=== PATIENT | male | born 1980 | race Caucasian/White ===

== ENCOUNTER 2016-07-19 19:08 | Emergency (ER) | payer OTHER ==
--- NOTE | 2016-07-19 22:02 | ED CLINICAL REPORT ---
Clinical Report - Physicians/Mid Levels [facility] [address] [place] [place] [address] 07/19/2016 19:09 Patient: ANDREY LEAL Time Seen: 193; initial patient contact. Arrived- By private vehicle. Historian- patient. HISTORY OF PRESENT ILLNESS Chief Complaint: SKIN RASH and BOIL. This started about 3 days ago and is still present and worsening. It was gradual in onset. It is described as itchy and painful. It has been generalized in location (multiple sores and swelling Left lower leg and ankle.). It has been located on the right leg and ankle (multiple sores and swelling). It has been located on the left buttock (abscess). A cause has been identified (IVDA). Similar symptoms previously: Several times. Recent medical care: Not recently seen/assessed. REVIEW OF SYSTEMS No fever, chills, nausea or vomiting. All systems otherwise negative, except as recorded above. PAST HISTORY Abscess Check. MRSA Infection. Cellulitis. Healing Abscess. Anal Fissure. Hemorrhoids. Abscess. ADDITIONAL SURGERIES: Shoulder Surgery. Tetanus immunization status is up-to-date. SOCIAL HISTORY Current every day smoker. Occasional alcohol use. History of IV drug use: methamphetamines, marijuana. ADDITIONAL NOTES The nursing notes have been reviewed with agreement regarding the chief complaint, PMH and patient medications and allergies. PHYSICAL EXAM Appearance: Alert. Oriented X3. No acute distress. ENT: Pharynx normal. CVS: Normal heart rate and rhythm. Heart sounds normal. Respiratory: No respiratory distress. Breath sounds normal. Abdomen: Nontender. No organomegaly. Skin: Medium area of cellulitis with tenderness, erythema and warmth to right leg, right ankle, right foot, left leg, left ankle and left foot. Single large abscess with fluctuance, pointing and cellulitis to left buttock. Extremities: Bilateral mild edema of the lower extremities involving both ankles. Neuro: Oriented X 3. LABS, X-RAYS, AND EKG Laboratory Tests: CBC w Diff: (ALYSHA: 07/19/2016 19:47) ( MsgRcvd 07/19/2016 20:37) Final results Test Result Flag Units (Reference) WHITE BLOOD COUNT 19.4 H K/uL (4.5-11.5) RED BLOOD COUNT 3.64 L M/uL (4.50-5.90) HEMOGLOBIN 11.0 L gm/dL (13.5-17.5) HEMATOCRIT 31.5 L % (41.0-53.0) MEAN CELL VOLUME 87 fL (80-100) MEAN CORPUSCULAR HGB 30 pg (26-34) MEAN CORPUSCULAR HGB CONC 35 g/dL (31-37) RED CELL DISTRIBUTION WIDTH 13.4 % (11.6-14.8) PLATELET COUNT 297 K/uL (150-400) POLY % 83 H % (50-75) BAND % 12 H % (0-8) LYMPH 2 L % (25-40) MONO 2 L % (3-14) EOSINOPHIL % 0 % (0-4) BASOPHIL % 0 % (0-2) METAMYELOCYTE % 1 % (0-1) MYELOCYTE 0 % (0-1) OTHER CELL TYPE 0 CMP: (ALYSHA: 07/19/2016 20:00) ( MsgRcvd 07/19/2016 20:36) Final results Test Result Flag Units (Reference) GLUCOSE 125 H mg/dL (70-110) BUN 12 mg/dL (7-18) CREATININE 0.9 mg/dL (0.6-1.3) Estimated GFR >60 mL/min Estimated GFR- >60 mL/min Note: Persistent reduction over 3 months in eGFR<60 mL/min/1.73 m2 defines CKD. Patients with eGFR values>=60 mL/min/1.73 m2 may also have CKD if evidence ofpersistent proteinuria. Additional information may be foundat www.kidney.org. SODIUM 135 L mmol/L (136-145) POTASSIUM 3.3 L mmol/L (3.5-5.1) CHLORIDE 99 mmol/L (98-107) CARBON DIOXIDE 27 mmol/L (21-32) CALCIUM 7.9 L mg/dL (8.5-10.1) TOTAL PROTEIN 6.7 g/dL (6.4-8.2) ALBUMIN 2.6 L g/dL (3.3-5.0) BILIRUBIN, TOTAL 1.2 H mg/dL (0.0-1.0) ALKALINE PHOSPHATASE 281 H U/L (46-116) AST (SGOT) 112 H U/L (15-37) ALT (SGPT) 72 U/L (12-78) Culture, Wound Deep: (ALYSHA: 07/19/2016 20:50) ( MsgRcvd 07/19/2016 21:30) IP SPECIMEN DESCRIPTION: ... Test Result Flag Units (Reference) GRAM STAIN, WOUND, DEEP GRAM POSITIVE COCCI: MODERATE WHITE BLOOD CELLS: FEW . PROGRESS AND PROCEDURES Incision & Drainage of Abscess: Time: 22:06. Per protocol, time-out completed immediately before the procedure. The abscess is located in the left buttock. The risks of the procedure, benefits and alternatives were explained. Consent was obtained. IV established. Placed on pulse oximeter. Parenteral Dilaudid administered. Skin cleansed with chlorhexidine. The abscess was incised with a #11 surgical blade. A large amount of pus was drained. Cavity was irrigated with saline and packed with gauze. Sample obtained for cultures and gram stain. A dressing was applied. Estimated blood loss: 10 mL. ( 100 mL pus drained). Course of Care: Spoke with pt about admission due to infection and high WBC. Initial HR was 101, so weak SIRS criteria. Pt has a place to stay with friends home and his mother is in the room and available to check on him. Dr. Bacon made aware of the case and is available if the patient needs to return tonight. Also discussed f/u tomorrow at [facility] and if not available can f/u here and I will be on shift. Will give Clindamycin 900 now, draw Lactate and PCT and blood cultures. Disposition: Discharged home in good and improved condition. Condition: good. CLINICAL IMPRESSION Single abscess to the left lower extremity with incision and drainage. Moderate leukocytosis with bandemia. INSTRUCTIONS Warnings: GENERAL WARNINGS: Return or contact your physician immediately if your condition worsens or changes unexpectedly, if not improving as expected, or if other problems arise. Specifically return if fever. If you can't get into [facility] tomorrow, you may come here. I am on shift tomorrow. Your Current Medications: CONTINUE TAKING THE FOLLOWING MEDICATIONS: None*. Prescription Medications: Hydrocodone/APAP 5mg / 325mg: take 1-2 orally every 6 hours as needed for pain. Dispense fifteen (15). No refill. Clindamycin 300 mg: take 1 capsule orally every 6 hours for 7 days. No refill. Follow-up: Screening today revealed the patient's blood pressure to be in the normal range. Follow-up with: [facility], , , [address], , [place], [address] Follow up tomorrow. Call for an appointment. (Electronically signed by Familia Gray Dr. 07/19/2016 22:09)
--- NOTE | 2016-07-19 22:02 | ED NURSING NOTES ---
Clinical Report - Nurses [facility] [address] [place] [address] 07/19/2016 19:09 [id number] Triage time 19:19. Acuity: LEVEL 3. Chief Complaint: LEFT LOWER EXTREMITY PAIN, SWELLING and REDNESS. 19:19 07/19/16. 19:19 07/19/16. No acute distress. SEPSIS SCREEN: Sepsis Screen. Negative (no infection suspected/documented). CARLOS ALBERTO COMA SCORE: Carlos Alberto Coma Scale: 15- eyes open spontaneously (4); best verbal response- oriented x 4 (5); best motor response- obeys commands (6). --19:22 Vipul Leo R.N. 19:19 07/19/16. BP: 117/71. HR: 101. RR: 18. O2 saturation: 99% on room air. Temp: 98.6 F (oral). Pain level now: 5/10. --19:22 Vipul Leo R.N. Weight: 69.8 kg stated. Height/Length: 72 inches Per Patient. BMI: 20.9. --19:21 Vipul Leo R.N. Medications None. --19:21 Vipul Leo R.N. Medication/allergy information source: the patient. --19:22 Vipul Leo R.N. Allergies No Known Drug Allergy. --19:21 Vipul Leo R.N. History Arrived by private vehicle. Historian: patient. Unaccompanied. 19:19 07/19/16. An injury may have occurred. He has had trouble walking. Treatment AGILE QA TESTER: None. PAST MEDICAL HX: Tetanus status: up-to-date. Immunizations: up-to-date. SOCIAL HX: Current every day smoker. Occasional alcohol use. History of heavy drug use: methamphetamines, marijuana. No infectious disease exposure. ABUSE ASSESSMENT: No report of abuse. FALL RISK ASSESSMENT: Fall risk assessment completed. No fall risk identified. NUTRITIONAL RISK ASSESSMENT: The nutritional risk assessment revealed no deficiencies. FUNCTIONAL ASSESSMENT: Functional assessment: no impairments noted. LEARNING NEEDS ASSESSMENT: The learning needs assessment revealed no barriers. SKIN INTEGRITY ASSESSMENT: Skin integrity risk assessment completed. No skin integrity risk identified. --19:22 Vipul Leo R.N. PROBLEMS: Abscess Check. MRSA Infection. Cellulitis. Healing Abscess. Anal Fissure. Hemorrhoids. Abscess. --19:21 Vipul Leo R.N. ADDITIONAL SURGERIES: Shoulder Surgery. --19:21 Vipul Leo R.N. Assessment 19:07/19/16. --19:22 Vipul Leo R.N. Interventions 19:07/19/16. 19:07/19/16. ID and allergy band on patient. --19: Vipul Leo R.N. PHYSICAL ASSESSMENT :07/19/16. GENERAL / NEURO / PSYCH: Oriented X 4. Alert. Appears in no acute distress. EXTREMITIES: Right foot: tenderness, swelling and erythema. Left foot: tenderness, swelling and erythema. SKIN: Skin is warm and dry. --19:22 Vipul Leo R.N. late entry - 20:07/19/16. SKIN: ( large abcess on left hip, hot, red, painful). --20:56 Camilla Rose R.N. NURSING PROGRESS NOTES :07/19/16. The plan of care for this patient has been created. Neuro-vascular extremity check. Patient gowned. Reassurance given. Call light placed in reach. Side rails up x 2. Bed placed in lowest position. Brakes of bed on. Brakes of chair on. --19: Vipul Leo R.N. :07/19/16. Patient ready for evaluation- chart flagged and notification provided. --: Vipul Leo R.N. 07/19/16. Care transferred and report given. --: Vipul Leo R.N. 20:07/19/2016 Site #1 started via IV in the right forearm with an 20g angiocath, with aseptic technique and good blood return; one attempt. Blood drawn: rainbow set and pediatric tubes. Labeled in the presence of the patient and sent to the lab. Saline lock flushed with 10 mL saline. --20:06 Camilla Rose R.N. 20:02 07/19/2016 Started bag #1 1000 mL IV Fluids IV NS (Saline); at 1000 mL/hr over 60 minute(s) via site #1. Allergies verified and confirmed 5 rights. IV patency established. IV site checked: no pain, redness, or swelling. IV flushed thoroughly pre- and post-medication administration. --20:06 Camilla Rose R.N. 20:03 07/19/2016 Dilaudid (HYDROmorphone HCl PF) IVP 1 mg given over 1 minute(s) via site #1. Allergies verified, confirmed 5 rights and sedative warning given to the patient. IV patency established. IV site checked: no pain, redness, or swelling. IV flushed thoroughly pre- and post-medication administration. IVP given by RN. --20:06 Camilla Rose R.N. 20:49 07/19/2016 Dilaudid (HYDROmorphone HCl PF) IVP 1 mg given over 1 minute(s) via site #1. Allergies verified, confirmed 5 rights and sedative warning given to the patient. IV patency established. IV site checked: no pain, redness, or swelling. IV flushed thoroughly pre- and post-medication administration. IVP given by RN. --20:51 Camilla Rose R.N. 21:15 07/19/16. BP: 90/57. HR: 88. RR: 18. O2 saturation: 100%. Pain level now 5/10. --21:15 Camilla Rose R.N. 21:00 07/19/2016 IV Fluids IV NS Discontinued: bag #1 infused. Total amount infused: 1000 mL. IV patency established. IV site checked: no pain, redness, or swelling. IV flushed thoroughly. --21:52 Camilla Rose R.N. 21:01 07/19/16. I & D: Incision and Drainage of abscess performed by ED physician. Assisted by one tech. Preparation: Incision and Drainage tray set up with 2% lidocaine. Procedure: skin cleansed with Betadine; a large amount of pus was drained. Cavity was packed with gauze. Sample obtained for cultures and gram stain. A dressing was applied. Post-procedure: he was stable. Total time of assist / procedure: 30 minutes. --21:01 Camilla Rose R.N. 21:15 07/19/16. Reassessment after (procedure). Overall patient status is the same- he states feels the same. --21:15 Camilla Rose R.N. 21:50 07/19/2016 Started 900 mg of Clindamycin IVPB in bag #1 50 mL; at 100 mL/hr over 30 minute(s) via site #1 via IV pump. Allergies verified and confirmed 5 rights. IV patency established. IV site checked: no pain, redness, or swelling. IV flushed thoroughly pre- and post-medication administration. --21:52 Camilla Rose R.N. DISPOSITION / DISCHARGE 22:20 07/19/2016 Clindamycin IVPB Discontinued: completed. Total amount infused: 50 mL. IV patency established. IV site checked: no pain, redness, or swelling. IV flushed thoroughly. --22:27 Camilla Rose R.N. 22:23 07/19/2016 Site #1 removed upon discharge. Catheter intact. Pressure dressing and bandaid applied. --22:28 Camilla Rose R.N. 22:27 07/19/16. Departure time: :Jul 19 2016. Condition at departure: improved and stable. The goals identified in the patient's plan of care were met. No learning barriers present. Reviewed medication(s) side effects, precautions, dosing and course information. Prescription(s) given to the patient. Patient verbalized understanding. Written instructions provided in Salvadorean. The patient was discharged home and accompanied by family. He left the Emergency Department ambulatory and via private vehicle. Family member driving. --22:29 Camilla Rose R.N. 22:27 07/19/16. BP: 103/68. HR: 91. RR: 18. O2 saturation: 100%. Temp: 98.3 F. Pain level now 09/06. --22:29 Camilla Rose R.N. Locked/Released at 07/19/2016 22:30 by Camilla Rose R.N.
--- NOTE | 2016-07-19 22:02 | ED ORDER SUMMARY ---
..... Patient: ANDREY LEAL OrderSheet [facility] VisitID: [id number] [place] [address] 35y, M Registration Date/Time: 07/19/2016 ORDER SHEET Weight: 69.8 kg (stated) Allergies: No Known Drug Allergy GENERAL ORDERS: Culture, Wound Deep (Buttock) (...) Urgent (19:47 07/19/2016 Whitley Victoria) (Ack 19:54 SRedmond) (20:49 EInderbitzen R.N.) CBC w Diff Urgent (19:47 07/19/2016 Whitley Victoria) (Ack 19:54 SRedmond) (20:05 EInderbitzen R.N.) CMP Urgent (19:47 07/19/2016 Whitley Victoria) (Ack 19:54 SRedmond) (20:05 EInderbitzen R.N.) Blood Culture (No) (N/A) Urgent (21:16 07/19/2016 Whitley Victoria) (Ack 21:25 SRedmond) (21:51 EInderbitzen R.N.) Lactic Acid for Sepsis Protocol Urgent (21:16 07/19/2016 Whitley Victoria) (Ack 21:25 SRedmond) (21:51 EInderbitzen R.N.) PCT (Procalcitonin) Urgent (21:16 07/19/2016 Whitley Victoria) (Ack 21:25 SRedmond) (21:51 EInderbitzen R.N.) MEDICATION ORDERS: IV FLUIDS: IV NS : initial bolus none -, then 1000 mL/hr for X1 (NOW) (19:46 07/19/2016 Whitley Victoria) (20:06 EInderbitzen R.N.) Dilaudid IV 1 mg (HIGH ALERT MEDICATION, NOW) (19:47 07/19/2016 Whitley Victoria) (20:06 EInderbitzen R.N.) Dilaudid IV 1 mg (HIGH ALERT MEDICATION, NOW) (20:50 07/19/2016 EInderbitzen R.N. verbal order read back to Whitley Victoria) (20:51 Steph R.NPancho) Clindamycin IV 900 mg/50mL (NOW) (21:16 07/19/2016 Whitley Victoria) (21:52 Steph Naqvi.Luis Enrique) ORDER SHEET NOTES: [Electronically signed by Familia Gray Dr. (22:09 07/19/2016)] [Electronically signed by Camilla Rose R.N. (22:30 07/19/2016)] [Electronically locked/signed by Camilla Rose R.N. (22:30 07/19/2016)]
--- NOTE | 2016-07-19 22:02 | ED ORDER SUMMARY ---
..... Patient: ANDREY LEAL OrderSheet [facility] VisitID: [id number] [place] [address] 35y, M Registration Date/Time: 07/19/2016 ORDER SHEET Weight: 69.8 kg (stated) Allergies: No Known Drug Allergy GENERAL ORDERS: Culture, Wound Deep (Buttock) (...) Urgent (19:47 07/19/2016 Whitley Victoria) (Ack 19:54 SRedmond) (20:49 EInderbitzen R.N.) CBC w Diff Urgent (19:47 07/19/2016 Whitley Victoria) (Ack 19:54 SRedmond) (20:05 EInderbitzen R.N.) CMP Urgent (19:47 07/19/2016 Whitley Victoria) (Ack 19:54 SRedmond) (20:05 EInderbitzen R.N.) Blood Culture (No) (N/A) Urgent (21:16 07/19/2016 Whitley Victoria) (Ack 21:25 SRedmond) (21:51 EInderbitzen R.N.) Lactic Acid for Sepsis Protocol Urgent (21:16 07/19/2016 Whitley Victoria) (Ack 21:25 SRedmond) (21:51 EInderbitzen R.N.) PCT (Procalcitonin) Urgent (21:16 07/19/2016 Whitley Victoria) (Ack 21:25 SRedmond) (21:51 EInderbitzen R.N.) MEDICATION ORDERS: IV FLUIDS: IV NS : initial bolus none -, then 1000 mL/hr for X1 (NOW) (19:46 07/19/2016 Whitley Victoria) (20:06 EInderbitzen R.N.) Dilaudid IV 1 mg (HIGH ALERT MEDICATION, NOW) (19:47 07/19/2016 Whitley Victoria) (20:06 EInderbitzen R.N.) Dilaudid IV 1 mg (HIGH ALERT MEDICATION, NOW) (20:50 07/19/2016 EInderbitzen R.N. verbal order read back to Whitley Victoria) (20:51 Steph R.NPancho) Clindamycin IV 900 mg/50mL (NOW) (21:16 07/19/2016 Whitley Victoria) (21:52 Steph Naqvi.Luis Enrique) ORDER SHEET NOTES: [Electronically signed by Familia Gray Dr. (22:09 07/19/2016)] [Electronically signed by Camilla Rose R.N. (22:30 07/19/2016)] [Electronically locked/signed by Camilla Rose R.N. (22:30 07/19/2016)]
--- NOTE | 2016-07-19 22:02 | ED CLINICAL REPORT ---
Clinical Report - Physicians/Mid Levels [facility] [address] [place] [place] [address] 07/19/2016 19:09 Patient: ANDREY LEAL Time Seen: 193; initial patient contact. Arrived- By private vehicle. Historian- patient. HISTORY OF PRESENT ILLNESS Chief Complaint: SKIN RASH and BOIL. This started about 3 days ago and is still present and worsening. It was gradual in onset. It is described as itchy and painful. It has been generalized in location (multiple sores and swelling Left lower leg and ankle.). It has been located on the right leg and ankle (multiple sores and swelling). It has been located on the left buttock (abscess). A cause has been identified (IVDA). Similar symptoms previously: Several times. Recent medical care: Not recently seen/assessed. REVIEW OF SYSTEMS No fever, chills, nausea or vomiting. All systems otherwise negative, except as recorded above. PAST HISTORY Abscess Check. MRSA Infection. Cellulitis. Healing Abscess. Anal Fissure. Hemorrhoids. Abscess. ADDITIONAL SURGERIES: Shoulder Surgery. Tetanus immunization status is up-to-date. SOCIAL HISTORY Current every day smoker. Occasional alcohol use. History of IV drug use: methamphetamines, marijuana. ADDITIONAL NOTES The nursing notes have been reviewed with agreement regarding the chief complaint, PMH and patient medications and allergies. PHYSICAL EXAM Appearance: Alert. Oriented X3. No acute distress. ENT: Pharynx normal. CVS: Normal heart rate and rhythm. Heart sounds normal. Respiratory: No respiratory distress. Breath sounds normal. Abdomen: Nontender. No organomegaly. Skin: Medium area of cellulitis with tenderness, erythema and warmth to right leg, right ankle, right foot, left leg, left ankle and left foot. Single large abscess with fluctuance, pointing and cellulitis to left buttock. Extremities: Bilateral mild edema of the lower extremities involving both ankles. Neuro: Oriented X 3. LABS, X-RAYS, AND EKG Laboratory Tests: CBC w Diff: (ALYSHA: 07/19/2016 19:47) ( MsgRcvd 07/19/2016 20:37) Final results Test Result Flag Units (Reference) WHITE BLOOD COUNT 19.4 H K/uL (4.5-11.5) RED BLOOD COUNT 3.64 L M/uL (4.50-5.90) HEMOGLOBIN 11.0 L gm/dL (13.5-17.5) HEMATOCRIT 31.5 L % (41.0-53.0) MEAN CELL VOLUME 87 fL (80-100) MEAN CORPUSCULAR HGB 30 pg (26-34) MEAN CORPUSCULAR HGB CONC 35 g/dL (31-37) RED CELL DISTRIBUTION WIDTH 13.4 % (11.6-14.8) PLATELET COUNT 297 K/uL (150-400) POLY % 83 H % (50-75) BAND % 12 H % (0-8) LYMPH 2 L % (25-40) MONO 2 L % (3-14) EOSINOPHIL % 0 % (0-4) BASOPHIL % 0 % (0-2) METAMYELOCYTE % 1 % (0-1) MYELOCYTE 0 % (0-1) OTHER CELL TYPE 0 CMP: (ALYSHA: 07/19/2016 20:00) ( MsgRcvd 07/19/2016 20:36) Final results Test Result Flag Units (Reference) GLUCOSE 125 H mg/dL (70-110) BUN 12 mg/dL (7-18) CREATININE 0.9 mg/dL (0.6-1.3) Estimated GFR >60 mL/min Estimated GFR- >60 mL/min Note: Persistent reduction over 3 months in eGFR<60 mL/min/1.73 m2 defines CKD. Patients with eGFR values>=60 mL/min/1.73 m2 may also have CKD if evidence ofpersistent proteinuria. Additional information may be foundat www.kidney.org. SODIUM 135 L mmol/L (136-145) POTASSIUM 3.3 L mmol/L (3.5-5.1) CHLORIDE 99 mmol/L (98-107) CARBON DIOXIDE 27 mmol/L (21-32) CALCIUM 7.9 L mg/dL (8.5-10.1) TOTAL PROTEIN 6.7 g/dL (6.4-8.2) ALBUMIN 2.6 L g/dL (3.3-5.0) BILIRUBIN, TOTAL 1.2 H mg/dL (0.0-1.0) ALKALINE PHOSPHATASE 281 H U/L (46-116) AST (SGOT) 112 H U/L (15-37) ALT (SGPT) 72 U/L (12-78) Culture, Wound Deep: (ALYSHA: 07/19/2016 20:50) ( MsgRcvd 07/19/2016 21:30) IP SPECIMEN DESCRIPTION: ... Test Result Flag Units (Reference) GRAM STAIN, WOUND, DEEP GRAM POSITIVE COCCI: MODERATE WHITE BLOOD CELLS: FEW . PROGRESS AND PROCEDURES Incision & Drainage of Abscess: Time: 22:06. Per protocol, time-out completed immediately before the procedure. The abscess is located in the left buttock. The risks of the procedure, benefits and alternatives were explained. Consent was obtained. IV established. Placed on pulse oximeter. Parenteral Dilaudid administered. Skin cleansed with chlorhexidine. The abscess was incised with a #11 surgical blade. A large amount of pus was drained. Cavity was irrigated with saline and packed with gauze. Sample obtained for cultures and gram stain. A dressing was applied. Estimated blood loss: 10 mL. ( 100 mL pus drained). Course of Care: Spoke with pt about admission due to infection and high WBC. Initial HR was 101, so weak SIRS criteria. Pt has a place to stay with friends home and his mother is in the room and available to check on him. Dr. Bacon made aware of the case and is available if the patient needs to return tonight. Also discussed f/u tomorrow at [facility] and if not available can f/u here and I will be on shift. Will give Clindamycin 900 now, draw Lactate and PCT and blood cultures. Disposition: Discharged home in good and improved condition. Condition: good. CLINICAL IMPRESSION Single abscess to the left lower extremity with incision and drainage. Moderate leukocytosis with bandemia. INSTRUCTIONS Warnings: GENERAL WARNINGS: Return or contact your physician immediately if your condition worsens or changes unexpectedly, if not improving as expected, or if other problems arise. Specifically return if fever. If you can't get into [facility] tomorrow, you may come here. I am on shift tomorrow. Your Current Medications: CONTINUE TAKING THE FOLLOWING MEDICATIONS: None*. Prescription Medications: Hydrocodone/APAP 5mg / 325mg: take 1-2 orally every 6 hours as needed for pain. Dispense fifteen (15). No refill. Clindamycin 300 mg: take 1 capsule orally every 6 hours for 7 days. No refill. Follow-up: Screening today revealed the patient's blood pressure to be in the normal range. Follow-up with: [facility], , , [address], , [place], [address] Follow up tomorrow. Call for an appointment. (Electronically signed by Familia Gray Dr. 07/19/2016 22:09)
--- NOTE | 2016-07-19 22:31 | ED MED RECONCILIATION SUMMARY ---
Patient: ANDREY LEAL Medication Reconciliation Report [facility] VisitID: [id number] [address] [place] [address] 35y, M Registration Date/Time: 07/19/2016 Weight: 69.8 kg Height/Length: 72 in. BMI: 20.9 ALLERGIES: No Known Drug Allergy The patient's Home Medications are listed below: NONE. The source(s) of the original Home Medication information: patient The following Medications were given to the patient in the Emergency Department: IV NS IV Fluids bolus 0, then 1000 mL/hr, administered: 07/19/2016 8:02:00 PM Dilaudid [IVP] IVP 1 mg, administered: 07/19/2016 8:03:00 PM Dilaudid [IVP] IVP 1 mg, administered: 07/19/2016 8:49:00 PM Clindamycin [IVPB] IVPB bolus 0, then 900 mg 100 mL/hr, administered: 07/19/2016 9:50:00 PM The following Medications were prescribed to the patient: Hydrocodone/APAP 5mg / 325mg: take 1-2 orally every 6 hours as needed for pain. Dispense fifteen (15). No refill. -- Familia Gray Dr. Clindamycin 300 mg: take 1 capsule orally every 6 hours for 7 days. No refill. -- Familia Gray Dr.
--- NOTE | 2016-07-19 22:31 | ED DISCHARGE INSTRUCTIONS ---
Patient: ANDREY LEAL General Instructions [facility] VisitID: [id number] [address] [place] [address] 35y, M Registration Date/Time: 07/19/2016 Single abscess to the left lower extremity with incision and drainage. Moderate leukocytosis with bandemia. INSTRUCTIONS Warnings: GENERAL WARNINGS: Return or contact your physician immediately if your condition worsens or changes unexpectedly, if not improving as expected, or if other problems arise. Specifically return if fever. If you can't get into [facility] tomorrow, you may come here. I am on shift tomorrow. Your Current Medications: CONTINUE TAKING THE FOLLOWING MEDICATIONS: None*. Prescription Medications: Hydrocodone/APAP 5mg / 325mg: take 1-2 orally every 6 hours as needed for pain. Dispense fifteen (15). No refill. Clindamycin 300 mg: take 1 capsule orally every 6 hours for 7 days. No refill. Follow-up: Screening today revealed the patient's blood pressure to be in the normal range. Follow-up with: [facility], , , [address], , [place], [id number] Follow up tomorrow. Call for an appointment. ADDITIONAL INFORMATION Abscess [Incision & Drainage] An abscess (sometimes called a boil) occurs when bacteria get trapped under the skin and begin to grow. Pus forms inside the abscess as the body responds to the bacteria. An abscess can occur with an insect bite, ingrown hair, blocked oil gland, pimple, cyst, or puncture wound. Treatment of your abscess has required an incision to drain the pus. If the abscess pocket was large, a gauze packing may have been inserted. This will need to be removed and possibly replaced on your next visit. Antibiotics are not required in the treatment of a simple abscess, unless the infection is spreading into the skin around the wound (known as cellulitis). Healing of the wound will take about one to two weeks depending on the size of the abscess. Healthy tissue will grow from the bottom and sides of the opening until it seals over. Home Care: The wound may drain for the first two days. Cover the wound with a clean dry dressing. If the dressing becomes soaked with blood or pus, change it. If a gauze packing was placed inside the abscess cavity, you may be advised to remove it yourself. You may do this in the shower. Once the packing is removed, you should wash the area in the shower or bath 3 to 4 times a day, until the skin opening has closed. If you were prescribed antibiotics, take them as directed until they are all gone. You may use acetaminophen (Tylenol) or ibuprofen (Motrin, Advil) to control pain, unless another pain medicine was prescribed. [ NOTE: If you have liver disease or ever had a stomach ulcer, talk with your doctor before using these medicines.] Follow Up with your doctor as advised by our staff. If a gauze packing was inserted in your wound, it should be removed in 1-2 days. Check your wound every day for the signs of worsening infection listed below. Get Prompt Medical Attention if any of the following occur: Increasing redness or swelling Red streaks in the skin leading away from the wound Increasing local pain or swelling Continued pus draining from the wound two days after treatment Fever of 100.4F (38C) or higher, or as directed by your healthcare provider Hydrocodone Bitartrate, Acetaminophen Oral tablet What is this medicine? ACETAMINOPHEN; HYDROCODONE (a set a ROCÍO rigo fen; randy droe KOE done) is a pain reliever. It is used to treat mild to moderate pain. How should I use this medicine? Take this medicine by mouth. Swallow it with a full glass of water. Follow the directions on the prescription label. If the medicine upsets your stomach, take the medicine with food or milk. Do not take more than you are told to take. Talk to your credit collections analyst regarding the use of this medicine in children. This medicine is not approved for use in children. What side effects may I notice from receiving this medicine? Side effects that you should report to your doctor or health care management assistant as soon as possible: allergic reactions like skin rash, itching or hives, swelling of the face, lips, or tongue breathing problems confusion feeling faint or lightheaded, falls stomach pain yellowing of the eyes or skin Side effects that usually do not require medical attention (report to your doctor or health care management assistant if they continue or are bothersome): nausea, vomiting stomach upset What may interact with this medicine? alcohol antihistamines isoniazid medicines for depression, anxiety, or psychotic disturbances medicines for sleep muscle relaxants naltrexone narcotic medicines (opiates) for pain phenobarbital ritonavir tramadol What if I miss a dose? If you miss a dose, take it as soon as you can. If it is almost time for your next dose, take only that dose. Do not take double or extra doses. Where should I keep my medicine? Keep out of the reach of children. This medicine can be abused. Keep your medicine in a safe place to protect it from theft. Do not share this medicine with anyone. Selling or giving away this medicine is dangerous and against the law. Store at room temperature between 15 and 30 degrees C (59 and 86 degrees F). Protect from light. Keep container tightly closed. Throw away any unused medicine after the expiration date. Discard unused medicine and used packaging carefully. Pets and children can be harmed if they find used or lost packages. What should I tell my health care provider before I take this medicine? They need to know if you have any of these conditions: brain tumor Crohn's disease, inflammatory bowel disease, or ulcerative colitis drink more than 3 alcohol-containing drinks per day drug abuse or addiction head injury heart or circulation problems kidney disease or problems going to the bathroom liver disease lung disease, asthma, or breathing problems an unusual or allergic reaction to acetaminophen, hydrocodone, other opioid analgesics, other medicines, foods, dyes, or preservatives or trying to get breast-feeding What should I watch for while using this medicine? Tell your doctor or health care management assistant if your pain does not go away, if it gets worse, or if you have new or a different type of pain. You may develop tolerance to the medicine. Tolerance means that you will need a higher dose of the medicine for pain relief. Tolerance is normal and is expected if you take the medicine for a long time. Do not suddenly stop taking your medicine because you may develop a severe reaction. Your body becomes used to the medicine. This does NOT mean you are addicted. Addiction is a behavior related to getting and using a drug for a non-medical reason. If you have pain, you have a medical reason to take pain medicine. Your doctor will tell you how much medicine to take. If your doctor wants you to stop the medicine, the dose will be slowly lowered over time to avoid any side effects. You may get drowsy or dizzy when you first start taking the medicine or change doses. Do not drive, use machinery, or do anything that may be dangerous until you know how the medicine affects you. Stand or sit up slowly. There are different types of narcotic medicines (opiates) for pain. If you take more than one type at the same time, you may have more side effects. Give your health care provider a list of all medicines you use. Your doctor will tell you how much medicine to take. Do not take more medicine than directed. Call emergency for help if you have problems breathing. The medicine will cause constipation. Try to have a bowel movement at least every 2 to 3 days. If you do not have a bowel movement for 3 days, call your doctor or health care management assistant. Too much acetaminophen can be very dangerous. Do not take Tylenol (acetaminophen) or medicines that contain acetaminophen with this medicine. Many non-prescription medicines contain acetaminophen. Always read the labels carefully. Clindamycin Hydrochloride Oral capsule What is this medicine? CLINDAMYCIN (KLIN da JOSE MARTIN sin) is a lincosamide antibiotic. It is used to treat certain kinds of bacterial infections. It will not work for colds, flu, or other viral infections. How should I use this medicine? Take this medicine by mouth with a full glass of water. Follow the directions on the prescription label. You can take this medicine with food or on an empty stomach. If the medicine upsets your stomach, take it with food. Take your medicine at regular intervals. Do not take your medicine more often than directed. Take all of your medicine as directed even if you think your are better. Do not skip doses or stop your medicine early. Talk to your credit collections analyst regarding the use of this medicine in children. Special care may be needed. What side effects may I notice from receiving this medicine? Side effects that you should report to your doctor or health care management assistant as soon as possible: allergic reactions like skin rash, itching or hives, swelling of the face, lips, or tongue dark urine pain on swallowing redness, blistering, peeling or loosening of the skin, including inside the mouth unusual bleeding or bruising unusually weak or tired yellowing of eyes or skin Side effects that usually do not require medical attention (report to your doctor or health care management assistant if they continue or are bothersome): diarrhea itching in the rectal or genital area joint pain nausea, vomiting stomach pain What may interact with this medicine? chloramphenicol erythromycin kaolin products What if I miss a dose? If you miss a dose, take it as soon as you can. If it is almost time for your next dose, take only that dose. Do not take double or extra doses. Where should I keep my medicine? Keep out of the reach of children. Store at room temperature between 20 and 25 degrees C (68 and 77 degrees F). Throw away any unused medicine after the expiration date. What should I tell my health care provider before I take this medicine? They need to know if you have any of these conditions: kidney disease liver disease stomach problems like colitis an unusual or allergic reaction to clindamycin, lincomycin, or other medicines, foods, dyes like tartrazine or preservatives or trying to get breast-feeding What should I watch for while using this medicine? Tell your doctor or healthcare professional if your symptoms do not start to get better or if they get worse. Do not treat diarrhea with over the counter products. Contact your doctor if you have diarrhea that lasts more than 2 days or if it is severe and watery. You have been given the following additional information: Abscess, Incision And Drainage Hydrocodone Bitartrate, Acetaminophen Oral tablet Clindamycin Hydrochloride Oral capsule (Electronically signed by Familia Gray Dr. 07/19/2016 22:09)
--- NOTE | 2016-07-19 22:31 | ED MAR SUMMARY ---
..... Medication Administration Record [facility] [address] [place] [address] Patient: ANDREY LEAL Visit ID: [id number] 35y, M Weight: 69.8 kg Height/Length: 72 in BMI: 20.9 ALLERGIES: No Known Drug Allergy Start 20:02 07/19/2016 Camilla Rose R.N., Stop 21:00 07/19/2016 Camilla Rose R.N. Medication Administered: IV NS (SALINE), Dose: IV Fluids over 60 minute(s), Rate: 1000 mL/hr, Dispensed: 1000 mL bag, Site: #1 right forearm. Medication Ordered: IV NS : initial bolus none -, then 1000 mL/hr for X1 (NOW). Given 20:03 07/19/2016 Camilla Rose R.N. Medication Administered: DILAUDID [IVP] (HYDROMORPHONE HCL PF), Dose: 1 mg IVP over 1 minute(s), Site: #1 right forearm. Medication Ordered: Dilaudid IV 1 mg (HIGH ALERT MEDICATION, NOW). Given 20:49 07/19/2016 Camilla Rose R.N. Medication Administered: DILAUDID [IVP] (HYDROMORPHONE HCL PF), Dose: 1 mg IVP over 1 minute(s), Site: #1 right forearm. Medication Ordered: Dilaudid IV 1 mg (HIGH ALERT MEDICATION, NOW). Start 21:50 07/19/2016 Camilla Rose R.N., Stop 22:20 07/19/2016 Camilla Rose R.N. Medication Administered: CLINDAMYCIN [IVPB], Dose: 900 mg IVPB over 30 minute(s), Rate: 100 mL/hr, Dispensed: 50 mL bag, Site: #1 right forearm. Medication Ordered: Clindamycin IV 900 mg/50mL (NOW).
--- NOTE | 2016-07-19 22:31 | ED MAR SUMMARY ---
..... Medication Administration Record [facility] [address] [place] [address] Patient: ANDREY LEAL Visit ID: [id number] 35y, M Weight: 69.8 kg Height/Length: 72 in BMI: 20.9 ALLERGIES: No Known Drug Allergy Start 20:02 07/19/2016 Camilla Rose R.N., Stop 21:00 07/19/2016 Camilla Rose R.N. Medication Administered: IV NS (SALINE), Dose: IV Fluids over 60 minute(s), Rate: 1000 mL/hr, Dispensed: 1000 mL bag, Site: #1 right forearm. Medication Ordered: IV NS : initial bolus none -, then 1000 mL/hr for X1 (NOW). Given 20:03 07/19/2016 Camilla Rose R.N. Medication Administered: DILAUDID [IVP] (HYDROMORPHONE HCL PF), Dose: 1 mg IVP over 1 minute(s), Site: #1 right forearm. Medication Ordered: Dilaudid IV 1 mg (HIGH ALERT MEDICATION, NOW). Given 20:49 07/19/2016 Camilla Rose R.N. Medication Administered: DILAUDID [IVP] (HYDROMORPHONE HCL PF), Dose: 1 mg IVP over 1 minute(s), Site: #1 right forearm. Medication Ordered: Dilaudid IV 1 mg (HIGH ALERT MEDICATION, NOW). Start 21:50 07/19/2016 Camilla Rose R.N., Stop 22:20 07/19/2016 Camilla Rose R.N. Medication Administered: CLINDAMYCIN [IVPB], Dose: 900 mg IVPB over 30 minute(s), Rate: 100 mL/hr, Dispensed: 50 mL bag, Site: #1 right forearm. Medication Ordered: Clindamycin IV 900 mg/50mL (NOW).
--- NOTE | 2016-07-19 22:31 | ED MED RECONCILIATION SUMMARY ---
Patient: ANDREY LEAL Medication Reconciliation Report [facility] VisitID: [id number] [address] [place] [address] 35y, M Registration Date/Time: 07/19/2016 Weight: 69.8 kg Height/Length: 72 in. BMI: 20.9 ALLERGIES: No Known Drug Allergy The patient's Home Medications are listed below: NONE. The source(s) of the original Home Medication information: patient The following Medications were given to the patient in the Emergency Department: IV NS IV Fluids bolus 0, then 1000 mL/hr, administered: 07/19/2016 8:02:00 PM Dilaudid [IVP] IVP 1 mg, administered: 07/19/2016 8:03:00 PM Dilaudid [IVP] IVP 1 mg, administered: 07/19/2016 8:49:00 PM Clindamycin [IVPB] IVPB bolus 0, then 900 mg 100 mL/hr, administered: 07/19/2016 9:50:00 PM The following Medications were prescribed to the patient: Hydrocodone/APAP 5mg / 325mg: take 1-2 orally every 6 hours as needed for pain. Dispense fifteen (15). No refill. -- Familia Gray Dr. Clindamycin 300 mg: take 1 capsule orally every 6 hours for 7 days. No refill. -- Familia Gray Dr.
--- NOTE | 2016-07-19 22:31 | ED DISCHARGE INSTRUCTIONS ---
Patient: ANDREY LEAL General Instructions [facility] VisitID: [id number] [address] [place] [address] 35y, M Registration Date/Time: 07/19/2016 Single abscess to the left lower extremity with incision and drainage. Moderate leukocytosis with bandemia. INSTRUCTIONS Warnings: GENERAL WARNINGS: Return or contact your physician immediately if your condition worsens or changes unexpectedly, if not improving as expected, or if other problems arise. Specifically return if fever. If you can't get into [facility] tomorrow, you may come here. I am on shift tomorrow. Your Current Medications: CONTINUE TAKING THE FOLLOWING MEDICATIONS: None*. Prescription Medications: Hydrocodone/APAP 5mg / 325mg: take 1-2 orally every 6 hours as needed for pain. Dispense fifteen (15). No refill. Clindamycin 300 mg: take 1 capsule orally every 6 hours for 7 days. No refill. Follow-up: Screening today revealed the patient's blood pressure to be in the normal range. Follow-up with: [facility] , , [address], , [place], [id number] Follow up tomorrow. Call for an appointment. ADDITIONAL INFORMATION Abscess [Incision & Drainage] An abscess (sometimes called a boil) occurs when bacteria get trapped under the skin and begin to grow. Pus forms inside the abscess as the body responds to the bacteria. An abscess can occur with an insect bite, ingrown hair, blocked oil gland, pimple, cyst, or puncture wound. Treatment of your abscess has required an incision to drain the pus. If the abscess pocket was large, a gauze packing may have been inserted. This will need to be removed and possibly replaced on your next visit. Antibiotics are not required in the treatment of a simple abscess, unless the infection is spreading into the skin around the wound (known as cellulitis). Healing of the wound will take about one to two weeks depending on the size of the abscess. Healthy tissue will grow from the bottom and sides of the opening until it seals over. Home Care: The wound may drain for the first two days. Cover the wound with a clean dry dressing. If the dressing becomes soaked with blood or pus, change it. If a gauze packing was placed inside the abscess cavity, you may be advised to remove it yourself. You may do this in the shower. Once the packing is removed, you should wash the area in the shower or bath 3 to 4 times a day, until the skin opening has closed. If you were prescribed antibiotics, take them as directed until they are all gone. You may use acetaminophen (Tylenol) or ibuprofen (Motrin, Advil) to control pain, unless another pain medicine was prescribed. [ NOTE: If you have liver disease or ever had a stomach ulcer, talk with your doctor before using these medicines.] Follow Up with your doctor as advised by our staff. If a gauze packing was inserted in your wound, it should be removed in 1-2 days. Check your wound every day for the signs of worsening infection listed below. Get Prompt Medical Attention if any of the following occur: Increasing redness or swelling Red streaks in the skin leading away from the wound Increasing local pain or swelling Continued pus draining from the wound two days after treatment Fever of 100.4F (38C) or higher, or as directed by your healthcare provider Hydrocodone Bitartrate, Acetaminophen Oral tablet What is this medicine? ACETAMINOPHEN; HYDROCODONE (a set a ROCÍO rigo fen; randy droe KOE done) is a pain reliever. It is used to treat mild to moderate pain. How should I use this medicine? Take this medicine by mouth. Swallow it with a full glass of water. Follow the directions on the prescription label. If the medicine upsets your stomach, take the medicine with food or milk. Do not take more than you are told to take. Talk to your anti air warfare operations officer regarding the use of this medicine in children. This medicine is not approved for use in children. What side effects may I notice from receiving this medicine? Side effects that you should report to your doctor or health healthcare management consultant as soon as possible: allergic reactions like skin rash, itching or hives, swelling of the face, lips, or tongue breathing problems confusion feeling faint or lightheaded, falls stomach pain yellowing of the eyes or skin Side effects that usually do not require medical attention (report to your doctor or health healthcare management consultant if they continue or are bothersome): nausea, vomiting stomach upset What may interact with this medicine? alcohol antihistamines isoniazid medicines for depression, anxiety, or psychotic disturbances medicines for sleep muscle relaxants naltrexone narcotic medicines (opiates) for pain phenobarbital ritonavir tramadol What if I miss a dose? If you miss a dose, take it as soon as you can. If it is almost time for your next dose, take only that dose. Do not take double or extra doses. Where should I keep my medicine? Keep out of the reach of children. This medicine can be abused. Keep your medicine in a safe place to protect it from theft. Do not share this medicine with anyone. Selling or giving away this medicine is dangerous and against the law. Store at room temperature between 15 and 30 degrees C (59 and 86 degrees F). Protect from light. Keep container tightly closed. Throw away any unused medicine after the expiration date. Discard unused medicine and used packaging carefully. Pets and children can be harmed if they find used or lost packages. What should I tell my health care provider before I take this medicine? They need to know if you have any of these conditions: brain tumor Crohn's disease, inflammatory bowel disease, or ulcerative colitis drink more than 3 alcohol-containing drinks per day drug abuse or addiction head injury heart or circulation problems kidney disease or problems going to the bathroom liver disease lung disease, asthma, or breathing problems an unusual or allergic reaction to acetaminophen, hydrocodone, other opioid analgesics, other medicines, foods, dyes, or preservatives or trying to get breast-feeding What should I watch for while using this medicine? Tell your doctor or health healthcare management consultant if your pain does not go away, if it gets worse, or if you have new or a different type of pain. You may develop tolerance to the medicine. Tolerance means that you will need a higher dose of the medicine for pain relief. Tolerance is normal and is expected if you take the medicine for a long time. Do not suddenly stop taking your medicine because you may develop a severe reaction. Your body becomes used to the medicine. This does NOT mean you are addicted. Addiction is a behavior related to getting and using a drug for a non-medical reason. If you have pain, you have a medical reason to take pain medicine. Your doctor will tell you how much medicine to take. If your doctor wants you to stop the medicine, the dose will be slowly lowered over time to avoid any side effects. You may get drowsy or dizzy when you first start taking the medicine or change doses. Do not drive, use machinery, or do anything that may be dangerous until you know how the medicine affects you. Stand or sit up slowly. There are different types of narcotic medicines (opiates) for pain. If you take more than one type at the same time, you may have more side effects. Give your health care provider a list of all medicines you use. Your doctor will tell you how much medicine to take. Do not take more medicine than directed. Call emergency for help if you have problems breathing. The medicine will cause constipation. Try to have a bowel movement at least every 2 to 3 days. If you do not have a bowel movement for 3 days, call your doctor or health healthcare management consultant. Too much acetaminophen can be very dangerous. Do not take Tylenol (acetaminophen) or medicines that contain acetaminophen with this medicine. Many non-prescription medicines contain acetaminophen. Always read the labels carefully. Clindamycin Hydrochloride Oral capsule What is this medicine? CLINDAMYCIN (KLIN da JOSE MARTIN sin) is a lincosamide antibiotic. It is used to treat certain kinds of bacterial infections. It will not work for colds, flu, or other viral infections. How should I use this medicine? Take this medicine by mouth with a full glass of water. Follow the directions on the prescription label. You can take this medicine with food or on an empty stomach. If the medicine upsets your stomach, take it with food. Take your medicine at regular intervals. Do not take your medicine more often than directed. Take all of your medicine as directed even if you think your are better. Do not skip doses or stop your medicine early. Talk to your anti air warfare operations officer regarding the use of this medicine in children. Special care may be needed. What side effects may I notice from receiving this medicine? Side effects that you should report to your doctor or health healthcare management consultant as soon as possible: allergic reactions like skin rash, itching or hives, swelling of the face, lips, or tongue dark urine pain on swallowing redness, blistering, peeling or loosening of the skin, including inside the mouth unusual bleeding or bruising unusually weak or tired yellowing of eyes or skin Side effects that usually do not require medical attention (report to your doctor or health healthcare management consultant if they continue or are bothersome): diarrhea itching in the rectal or genital area joint pain nausea, vomiting stomach pain What may interact with this medicine? chloramphenicol erythromycin kaolin products What if I miss a dose? If you miss a dose, take it as soon as you can. If it is almost time for your next dose, take only that dose. Do not take double or extra doses. Where should I keep my medicine? Keep out of the reach of children. Store at room temperature between 20 and 25 degrees C (68 and 77 degrees F). Throw away any unused medicine after the expiration date. What should I tell my health care provider before I take this medicine? They need to know if you have any of these conditions: kidney disease liver disease stomach problems like colitis an unusual or allergic reaction to clindamycin, lincomycin, or other medicines, foods, dyes like tartrazine or preservatives or trying to get breast-feeding What should I watch for while using this medicine? Tell your doctor or healthcare professional if your symptoms do not start to get better or if they get worse. Do not treat diarrhea with over the counter products. Contact your doctor if you have diarrhea that lasts more than 2 days or if it is severe and watery. You have been given the following additional information: Abscess, Incision And Drainage Hydrocodone Bitartrate, Acetaminophen Oral tablet Clindamycin Hydrochloride Oral capsule (Electronically signed by Familia Gray Dr. 07/19/2016 22:09)
== END 2016-07-19 22:27 | disposition home or self-care (01) ==
LOC: ED SRH 19:08
DX: L02.416 Cutaneous abscess of left lower limb (principal); B95.62 Methicillin resistant Staphylococcus aureus infection as the cause of diseases classified elsewhere; D72.829 Elevated white blood cell count, unspecified; F17.210 Nicotine dependence, cigarettes, uncomplicated; F12.10 Cannabis abuse, uncomplicated
CPT/HCPCS: 90065; 90070; 90074; 90100; 90131; 90309; 90470; 91643; 91672; 92031; 93004; 95059

== ENCOUNTER 2016-07-21 19:56 | Emergency (ER) | payer OTHER ==
--- NOTE | 2016-07-21 21:43 | ED ORDER SUMMARY ---
..... Patient: ANDREY LEAL OrderSheet [facility] VisitID: [id number] [address] [place] [address] 35y, M Registration Date/Time: 07/21/2016 ORDER SHEET Weight: 70.7 kg (stated) Allergies: No Known Drug Allergy GENERAL ORDERS: Wound Set-up: (repack wound) (21:20 07/21/2016 Timmy Victoria) (21:26 Steph Whitman) MEDICATION ORDERS: IV FLUIDS: ORDER SHEET NOTES: [Electronically signed by Camilla Rose R.N. (22:46 07/21/2016)] [Electronically signed by Akash Olivo Dr. (02:44 07/24/2016)] [Electronically locked/signed by Camilla Rose R.N. (22:46 07/21/2016)]
--- NOTE | 2016-07-21 21:43 | ED NURSING NOTES ---
Clinical Report - Nurses [facility] [address] [place] [address] 07/21/2016 19:57 Patient: GRACE LEAL TRIAGE Triage time 20:16. Acuity: LEVEL 4. Chief Complaint: BOIL and TENDER AREA and . Grace is here for a wound re-check and to evaluate a new wound. Alert. No acute distress. SEPSIS SCREEN: Sepsis Screen: negative. Negative (no infection suspected/documented). --20:21 Manolo Weems R.N. 20:16 07/21/16. BP: 127/85 (regular adult cuff) taken on the left arm, via an automated monitor, while sitting. HR: 104 (tachycardic). RR: 16 (regular, unlabored and normal). O2 saturation: 100% on room air. Temp: 99.4 F (oral). Pain level now: 8/10. --20:21 Manolo Weems R.N. Weight: 70.7 kg stated. Height/Length: 72 inches Per Patient. BMI: 21.2. --20:17 Manolo Weems R.N. Medications None. --20:18 Manolo Weems R.N. Medication/allergy information source: the patient. --20:21 Manolo Weems R.N. Allergies No Known Drug Allergy. --20:18 Manolo Weems R.N. History Arrived by private vehicle. Historian: patient. Primary physician (None). Reported as located on the right buttock (New wound on R hip, wound recheck location is L hip.). Onset. (about 7 days). It is described as painful. 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 SOCIAL HX: Current every day heavy tobacco smoker (cigarette)- less than 1 pack per day. Occasional alcohol use. History of drug use: heroin, marijuana. Is a recovering addict. Recently used drugs yesterday. The patient has not traveled outside the [place] The patient was exposed to MRSA. ABUSE ASSESSMENT: Abuse assessment: The patient was asked "Do you feel safe in your home?" and "Has anyone hurt you or threatened to hurt you?". No report of abuse. SELF HARM ASSESSMENT: A self harm assessment was performed. The patient answered "no" to the question "Do you have thoughts of harming or killing yourself?" and "Have you recently had thoughts about harming or killing others?". FALL RISK ASSESSMENT: Fall risk assessment completed. No fall risk identified. NUTRITIONAL RISK ASSESSMENT: The nutritional risk assessment revealed no deficiencies. FUNCTIONAL ASSESSMENT: Functional assessment: no impairments noted. LEARNING NEEDS ASSESSMENT: The learning needs assessment revealed no barriers. SKIN INTEGRITY ASSESSMENT: Skin integrity risk assessment completed. No skin integrity risk identified. --20:21 Manolo Weems R.N. PROBLEMS: Leukocytosis. Abscess Check. MRSA Infection. Cellulitis. Healing Abscess. Anal Fissure. Hemorrhoids. Abscess. --20:18 Manolo Weems R.N. ADDITIONAL SURGERIES: Shoulder Surgery. --20:18 Manolo Weems R.N. Assessment GENERAL / NEURO / PSYCH: Alert. Oriented X 4. Appears in no acute distress. [place] Coma Scale: 15- eyes open spontaneously (4); best verbal response- oriented x 4 (5); best motor response- obeys commands (6). Patient appears calm and cooperative. RESPIRATORY: Respirations not labored. SKIN: Skin is warm and dry. --20:21 Manolo Weems R.N. Interventions ID band on patient. To waiting room. --20:21 Manolo Weems R.N. To treatment room. Ambulatory by hospital staff. Report given to the primary nurse. OSMIN Sampson. --21:03 Manolo Weems R.N. PHYSICAL ASSESSMENT 21:12 07/21/16. Ambulatory to room. GENERAL / NEURO / PSYCH: Alert. Appears in pain. Oriented X 4. HEENT: Pupils equal, round and reactive to light. RESPIRATORY: Respirations not labored. SKIN: Tenderness on the right buttock- associated with erythema, swelling and increased warmth- hardened skin, recent injection winslow. --21:12 Camilla Rose R.N. 21:13 07/21/16. SKIN: Tenderness on the left buttock- hip area, packing removed, moderate amount of cummins drainage from I&D site. --21:13 Camilla Rose R.N. NURSING PROGRESS NOTES The initial plan of care for this patient has been created This plan of care was discussed with the patient. Pulse oximeter and NIBP monitor placed on patient. Patient gowned. Reassurance given to the patient. Two patient identifiers checked. Call light placed in reach. Side rails up x 1. Bed placed in lowest position. Brakes of bed on. Patient ready for evaluation- ED physician notified. --21:02 Manolo Weems R.N. Warming measures: blanket applied. --21:07 Manolo Weems R.N. 21:07 07/21/16. BP: 139/83 (regular adult cuff) taken on the left arm, via an automated monitor, while sitting. HR: 102 (tachycardic). RR: 16 (regular, unlabored and normal). O2 saturation: 100% on room air. Temp: 98.9 F (oral). --21:07 Manolo Weems R.N. 21:14 07/21/16. ( Small amount of 1/4 inch nugauze packing removed, moderate amount of watery cummins drainage from wound. site re-covered with 4x4, no tape applied.). --21:14 Camilla Rose R.N. DISPOSITION / DISCHARGE 21:40 07/21/16. Departure time: 21:40 Jul 21 2016. Condition at departure: improved and stable. The goals identified in the patient's plan of care were met. The patient left prior to discharge education being provided. --22:46 Camilla Rose R.N. 21:07 07/21/16. BP: 139/83 (regular adult cuff) taken on the left arm, via an automated monitor, while sitting. HR: 102 (tachycardic). RR: 16 (regular, unlabored and normal). O2 saturation: 100% on room air. Temp: 98.9 F (oral). 20:16 07/21/16. BP: 127/85 (regular adult cuff) taken on the left arm, via an automated monitor, while sitting. HR: 104 (tachycardic). RR: 16 (regular, unlabored and normal). O2 saturation: 100% on room air. Temp: 99.4 F (oral). Pain level now: 12/07. --22:46 Camilla Rose R.N. Locked/Released at 07/21/2016 22:46 by Camilla Rose R.N.
--- NOTE | 2016-07-21 21:43 | ED ORDER SUMMARY ---
..... Patient: ANDREY LEAL OrderSheet [facility] VisitID: [id number] [address] [place] [address] 35y, M Registration Date/Time: 07/21/2016 ORDER SHEET Weight: 70.7 kg (stated) Allergies: No Known Drug Allergy GENERAL ORDERS: Wound Set-up: (repack wound) (21:20 07/21/2016 Timmy Victoria) (21:26 Steph Whitman) MEDICATION ORDERS: IV FLUIDS: ORDER SHEET NOTES: [Electronically signed by Camilla Rose R.N. (22:46 07/21/2016)] [Electronically signed by Akash Olivo Dr. (02:44 07/24/2016)] [Electronically locked/signed by Camilla Rose R.N. (22:46 07/21/2016)]
--- NOTE | 2016-07-21 21:43 | ED CLINICAL REPORT ---
Clinical Report - Physicians/Mid Levels [facility] [address] [place] [address] 07/21/2016 19:57 Patient: ANDREY LEAL Time Seen: 2109. Arrived- By private vehicle. Historian- patient. HISTORY OF PRESENT ILLNESS Chief Complaint: BOIL. This started several days ago and is still present but is improving. It was gradual in onset and has been constant but is not gone now. It is described as painful. It has been located on the right and left buttocks. A cause has been identified (abscess). (taking abx. reports no problems or concerns. states it is getting much better. has another one but reports that it is deep.). Similar symptoms previously: Many times. Recent medical care: The patient was seen recently in the emergency department (recent I&D). REVIEW OF SYSTEMS No fever, chills or headache. All systems otherwise negative, except as recorded above. PAST HISTORY See nurses notes. Tetanus immunization status is up-to-date. Medications: None. Allergies: No Known Drug Allergy. SOCIAL HISTORY Smoker- current status unknown. History of drug use. Is a recovering addict. No alcohol use. No recent travel. Is a local resident. ADDITIONAL NOTES The nursing notes have been reviewed. PHYSICAL EXAM Vital Signs: 07/21/2016 20:16 BP: 127/85. HR: 104. RR: 16. O2 saturation: 100%. Temp: 99.4 F. Pain level now: 8/10. Blood pressure normal. Oxygen saturation normal. Appearance: Alert. Oriented X3. No acute distress. CVS: Normal heart rate and rhythm. Heart sounds normal. Respiratory: No respiratory distress. Breath sounds normal. Chest nontender. Abdomen: Nontender. No organomegaly. Skin: (Drained abscess to the right buttocks. No surrounding erythema. Area is minimally tender and appropriate. No area of fluctuance. It is repacked at bedside. Patient told the procedure well. Left buttocks has an area of induration however no fluctuance noted. No fluid pocket identified. Mild overlying hyperemia. No crepitus. No bony abnormalities. Skin is intact. No other overlying skin changes.). Extremities: Normal external inspection. Extremities nontender. PROGRESS AND PROCEDURES PROCEDURES (Wound is repacked with 1 inch packing to the right buttocks. Several centimeters of packing placed in the wound. Small wick left out. Wound was cleaned and dressed with fresh bandages. Patient tolerated procedure well. no competitions. Blood loss was less than 1 cc.). Course of Care: The patient is a pleasant 35-year-old male with past medical history significant for substance abuse presented for evaluation of wound check. In reviewing the patient's past visit, patient had a wound that was located to the right buttocks that was I&D at bedside in the emergency department. Patient also had significantly abnormal labs. Had asked the patient if she would like to be admitted to the hospital at this time however patient states that he does not want to be admitted. Discussed the risks and benefits of being admitted to the hospital however again patient declines. Patient encouraged to return to the emergency department for any worsening or return if he changes his mind. Wound is repacked here in the emergency department. Unable to find localized fluid collection in the left buttocks. Recommended warm compresses and monitoring. Patient with mild tachycardia here in the emergency Department however patient does not want to be admitted to the hospital. Recommended patient continue with aggressive fluid hydration. Patient expressed understanding of the treatment. No other concerns at this time. Discussed the patient is workup in the emergency department including home care, follow-up, and return precautions. All questions have been answered. The patient expressed understanding of these instructions and was agreeable to them. CLINICAL IMPRESSION 07/21/2016 21:07 BP: 139/83. HR: 102. RR: 16. O2 saturation: 100%. Temp: 98.9 F. Blood pressure normal. Oxygen saturation normal. Cellulitis (right buttocks). Multiple deep abscesses (right and left buttocks (left previously drained)). wound recheck, abscess I & D left buttocks. INSTRUCTIONS (Continue taking antibiotic as directed.). Warnings: GENERAL WARNINGS: Return or contact your physician immediately if your condition worsens or changes unexpectedly, if not improving as expected, or if other problems arise. Specifically return if pain, vomiting, bleeding, breathing difficulty or fever. Your Current Medications: CONTINUE TAKING THE FOLLOWING MEDICATIONS: None*. Follow-up: Return to the emergency department as needed. Follow up with your doctor in three days. Reason for referral: recheck today's concerns. Summary of care provided to patient via paper. Screening today revealed the patient's blood pressure to be in the normal range. The patient should follow up with a primary care provider for blood pressure management. Understanding of the discharge instructions verbalized by patient. (Electronically signed by Akash Olivo Dr. 07/24/2016 2:44)
--- NOTE | 2016-07-24 02:44 | ED MAR SUMMARY ---
..... Medication Administration Record Located Within [facility] [address] [place], [place] [id number] Patient: ANDREY LEAL Visit ID: [id number] 35y, M Weight: 70.7 kg Height/Length: 72 in BMI: 21.2 ALLERGIES: No Known Drug Allergy
--- NOTE | 2016-07-24 02:44 | ED DISCHARGE INSTRUCTIONS ---
Patient: ANDREY LEAL General Instructions [facility] VisitID: [id number] [place] [address] 35y, M Registration Date/Time: 07/21/2016 07/21/2016 21:07 BP: 139/83. HR: 102. RR: 16. O2 saturation: 100%. Temp: 98.9 F. Blood pressure normal. Oxygen saturation normal. Cellulitis (right buttocks). Multiple deep abscesses (right and left buttocks (left previously drained)). wound recheck, abscess I & D left buttocks. INSTRUCTIONS (Continue taking antibiotic as directed.). Warnings: GENERAL WARNINGS: Return or contact your physician immediately if your condition worsens or changes unexpectedly, if not improving as expected, or if other problems arise. Specifically return if pain, vomiting, bleeding, breathing difficulty or fever. Your Current Medications: CONTINUE TAKING THE FOLLOWING MEDICATIONS: None*. Follow-up: Return to the emergency department as needed. Follow up with your doctor in three days. Reason for referral: recheck today's concerns. Summary of care provided to patient via paper. Screening today revealed the patient's blood pressure to be in the normal range. The patient should follow up with a primary care provider for blood pressure management. Understanding of the discharge instructions verbalized by patient. ADDITIONAL INFORMATION Cellulitis You have an infection of the skin known as cellulitis. This usually starts with a scrape, cut, insect bite, blister or other opening in the skin which becomes infected. This is a serious condition. It must be watched closely to be sure the infection is not spreading. With antibiotic treatment, the size of the red area will gradually shrink in size until the skin returns to normal. This will take 7-10 days. The red area should never increase in size once the antibiotic medicine has been started. Occasionally, an infection will be resistant to one antibiotic and another one will have to be used. Home Care: 1) Limit the use of the affected part, since excess movement can cause the infection to spread. 2) If the infection is on your leg, walk as little as possible during the first few days of the treatment. Keep your leg elevated while sitting. This will reduce swelling. 3) Take all of the antibiotic medicine exactly as directed until it is gone. Be careful not to miss any doses, especially during the first seven days. Follow Up with your doctor or this facility as directed. Check the infected area daily for the warning signs listed below. Get Prompt Medical Attention if any of the following occur: -- Spreading area of redness -- Increasing swelling or pain -- Appearance of pus or drainage -- Fever over 100.4 F (38.0 C) oral, or over 101.4 F (38.6 C) rectal, after two days on antibiotics Abscess [Incision & Drainage] An abscess (sometimes called a boil) occurs when bacteria get trapped under the skin and begin to grow. Pus forms inside the abscess as the body responds to the bacteria. An abscess can occur with an insect bite, ingrown hair, blocked oil gland, pimple, cyst, or puncture wound. Treatment of your abscess has required an incision to drain the pus. If the abscess pocket was large, a gauze packing may have been inserted. This will need to be removed and possibly replaced on your next visit. Antibiotics are not required in the treatment of a simple abscess, unless the infection is spreading into the skin around the wound (known as cellulitis). Healing of the wound will take about one to two weeks depending on the size of the abscess. Healthy tissue will grow from the bottom and sides of the opening until it seals over. Home Care: The wound may drain for the first two days. Cover the wound with a clean dry dressing. If the dressing becomes soaked with blood or pus, change it. If a gauze packing was placed inside the abscess cavity, you may be advised to remove it yourself. You may do this in the shower. Once the packing is removed, you should wash the area in the shower or bath 3 to 4 times a day, until the skin opening has closed. If you were prescribed antibiotics, take them as directed until they are all gone. You may use acetaminophen (Tylenol) or ibuprofen (Motrin, Advil) to control pain, unless another pain medicine was prescribed. [ NOTE: If you have liver disease or ever had a stomach ulcer, talk with your doctor before using these medicines.] Follow Up with your doctor as advised by our staff. If a gauze packing was inserted in your wound, it should be removed in 1-2 days. Check your wound every day for the signs of worsening infection listed below. Get Prompt Medical Attention if any of the following occur: Increasing redness or swelling Red streaks in the skin leading away from the wound Increasing local pain or swelling Continued pus draining from the wound two days after treatment Fever of 100.4F (38C) or higher, or as directed by your healthcare provider Abscess (Antibiotic Treatment Only) An abscess (sometimes called a boil) occurs when bacteria get trapped under the skin and begin to grow. Pus forms inside the abscess as the body responds to the bacteria. An abscess can occur with an insect bite, ingrown hair, blocked oil gland, pimple, cyst, or puncture wound. In the early stages, redness and tenderness are the only symptoms. Sometimes, this stage can be treated with antibiotics alone. If the abscess does not respond to antibiotic treatment, it will need to be drained with a small cut, under local anesthesia. Home care The following will help you care for your abscess at home: Soak the wound in hot water or apply hot packs (small towel soaked in hot water) to the area for 20 minutes at a time. Do this three to four times a day. Apply antibiotic cream or ointment onto the skin 3-4 times a day, unless something else was prescribed. Some ointments include an antibiotic plus a local pain reliever. If your doctor prescribed antibiotics, do not stop taking this medication until you have finished the prescribed course or the doctor tells you to stop. You may use an [id number] pain medication to control pain, unless another pain medicine was prescribed. If you have chronic liver or kidney disease or ever had a stomach ulcer or GI bleeding, talk with your doctor before using these any of these. Follow-up care Follow up with your health care provider as advised by our staff. Look at your wound each day for the signs of worsening infection listed below. When to seek medical care Get prompt medical attention if any of the following occur: An increase in redness or swelling Red streaks in the skin leading away from the abscess An increase in local pain or swelling Fever of 100.4F (38C) or higher, or as directed by your health care provider Pus or fluid coming from the abscess You have been given the following additional information: Cellulitis Abscess, Incision And Drainage Abscess, Antiobiotic Treatment Only (Electronically signed by kAash Olivo Dr. 07/24/2016 2:44)
--- NOTE | 2016-07-24 02:44 | ED MED RECONCILIATION SUMMARY ---
Patient: ANDREY LEAL Medication Reconciliation Report [facility] VisitID: [id number] [address] [place] [address] 35y, M Registration Date/Time: 07/21/2016 Weight: 70.7 kg Height/Length: 72 in. BMI: 21.2 ALLERGIES: No Known Drug Allergy The patient's Home Medications are listed below: NONE. The source(s) of the original Home Medication information: patient The following Medications were given to the patient in the Emergency Department: None. The following Medications were prescribed to the patient: None.
--- NOTE | 2016-07-24 02:44 | ED MED RECONCILIATION SUMMARY ---
Patient: ANDREY LEAL Medication Reconciliation Report [facility] VisitID: [id number] [address] [place] [address] 35y, M Registration Date/Time: 07/21/2016 Weight: 70.7 kg Height/Length: 72 in. BMI: 21.2 ALLERGIES: No Known Drug Allergy The patient's Home Medications are listed below: NONE. The source(s) of the original Home Medication information: patient The following Medications were given to the patient in the Emergency Department: None. The following Medications were prescribed to the patient: None.
--- NOTE | 2016-07-24 02:44 | ED MAR SUMMARY ---
..... Medication Administration Record [facility] [address] [place] [id number] Patient: ANDREY LEAL Visit ID: [id number] 35y, M Weight: 70.7 kg Height/Length: 72 in BMI: 21.2 ALLERGIES: No Known Drug Allergy
== END 2016-07-21 21:45 | disposition home or self-care (01) ==
LOC: ED SRH 19:56
DX: Z51.89 Encounter for other specified aftercare (principal)

== ENCOUNTER 2016-07-23 16:14 | Emergency (ER) | payer OTHER ==
--- NOTE | 2016-07-23 18:02 | ED ORDER SUMMARY ---
..... Patient: ANDREY LEAL OrderSheet [facility] VisitID: [id number] [place] [address] 35y, M Registration Date/Time: 07/23/2016 ORDER SHEET Weight: 70.7 kg (stated) Allergies: No Known Drug Allergy GENERAL ORDERS: I&D Tray (17:07 07/23/2016 Tatum Saldivar) ([facility] 17:38 Yahir) (17:38 Yahir) MEDICATION ORDERS: IV FLUIDS: ORDER SHEET NOTES: [Electronically signed by Pearl Beckwith P.A.-C (18:24 07/23/2016)] [Electronically signed by Malik Savage R.N. (18:44 07/23/2016)] [Electronically locked/signed by Malik Savage R.N. (18:44 07/23/2016)]
--- NOTE | 2016-07-23 18:02 | ED NURSING NOTES ---
Clinical Report - Nurses [facility] [address] [place] [address] 07/23/2016 16:14 Patient: ANDREY LEAL TRIAGE Triage time 16:36. Acuity: LEVEL 3. Chief Complaint: BOIL. Alert. SEPSIS SCREEN: Sepsis Screen. Infection suspected/documented. Heart rate greater than 90. Temperature not greater than 38.3 degrees C (101 degrees F). Respiratory rate not greater than 20. CARLOS ALBERTO COMA SCORE: Carlos Alberto Coma Scale: 15- eyes open spontaneously (4); best verbal response- oriented x 4 (5); best motor response- obeys commands (6). --16:40 Rhiannon Shelby R.N. 16:36 07/23/16. BP: 120/83. HR: 101. RR: 17. O2 saturation: 99%. Temp: 98.3 F. Pain level now 10/10. --16:40 Rhiannon Shelby R.N. Weight: 70.7 kg stated. Height/Length: 72 inches Per Patient. BMI: 21.2. --16:38 Rhiannon Shelby R.N. Medications Clindamycin HCl Oral. --16:38 Rhiannon Shelby R.N. Medication/allergy information source: the patient. --16:40 Rhiannon Shelby R.N. Allergies No Known Drug Allergy. --16:38 Rhiannon Shelby R.N. History Arrived by private vehicle. Historian: patient. Accompanied by family. Primary physician (filomena). ( seen here 4 days ago for left hip abcess, has been on clindamycin. Returning today for another abcess, located on right hip/buttock. Present for 1 week). Reported as located on the right buttock. 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 SOCIAL HX: Heavy tobacco smoker (cigarette)- less than 1 pack per day. History of IV drug use: heroin, marijuana. Recently used drugs yesterday. No alcohol use. FALL RISK ASSESSMENT: Fall risk assessment completed. No fall risk identified. NUTRITIONAL RISK ASSESSMENT: The nutritional risk assessment revealed no deficiencies. FUNCTIONAL ASSESSMENT: Functional assessment: no impairments noted. LEARNING NEEDS ASSESSMENT: The learning needs assessment revealed no barriers. SKIN INTEGRITY ASSESSMENT: Skin integrity risk assessment completed. No skin integrity risk identified. --16:40 Rhiannon Shelby R.N. PROBLEMS: Leukocytosis. Abscess Check. MRSA Infection. Cellulitis. Healing Abscess. Anal Fissure. Hemorrhoids. Abscess. --16:38 Rhiannon Shelby R.N. ADDITIONAL SURGERIES: Shoulder Surgery. --16:38 Rhiannon Shelby R.N. Interventions ID band on patient. To treatment room. --16:40 Rhiannon Shelby R.N. PHYSICAL ASSESSMENT Ambulatory to room. GENERAL / NEURO / PSYCH: Alert. Oriented X 4. HEENT: Pupils equal, round and reactive to light. Mucous membranes are pink. RESPIRATORY: Respirations not labored. CVS: Capillary refill less than 2 seconds. Pulses within normal limits. GI / : Abdomen nontender. SKIN: Skin is intact, warm, dry and non-tender. Normal skin turgor. --16:44 Malik Savage R.N. NURSING PROGRESS NOTES Patient gowned. Reassurance given. Patient identifiers checked. Call light placed in reach. Side rails up x 1. Bed placed in lowest position. Brakes of bed on. Patient ready for evaluation- chart flagged and ED physician notified. --16:44 Malik Savage R.N. 17:50. I & D: Incision and Drainage of abscess performed by PA. Assisted by one nurse. The abscess is located on the (Buttock). Preparation: Incision and Drainage tray set up with 2% lidocaine. Procedure; a moderate amount of pus was drained. Cavity was irrigated with saline and packed with gauze. A dressing was applied. Post-procedure: he was stable, no complications, bleeding controlled and dressing intact. Estimated blood loss: ~10 mL. Total time of assist / procedure: 15 minutes. --18:42 Malik Savage R.N. DISPOSITION / DISCHARGE 18:26 07/23/16. BP: 112/56 taken on the right arm, while lying. HR: 94. RR: 20. O2 saturation: 98%. Temp: deferred. Pain level now: 07/07. 16:36 07/23/16. BP: 120/83. HR: 101. RR: 17. O2 saturation: 99%. Temp: 98.3 F. Pain level now 02/06. --18:28 Ana Abbott R.N. Departure time: 1829. --18:33 Malik Savage R.N. 18:30. Condition at departure: improved. Learning barriers present. Discharge instructions provided and reviewed with the patient. Reviewed medication(s) (prescription given to pt). Reviewed wound care instructions. Reviewed referral to family practice for followup. Patient verbalized understanding. Written instructions provided in Thai. The patient was discharged by the physician pharmacy technician assistant. He was discharged home and accompanied by parent. He left the Emergency Department ambulatory and via private vehicle. Parent driving. --18:35 Malik Savage R.N. Locked/Released at 07/23/2016 18:44 by Malik Savage R.N.
--- NOTE | 2016-07-23 18:02 | ED ORDER SUMMARY ---
..... Patient: ANDREY LEAL OrderSheet VisitID: [id number] [place] [address] 35y, M Registration Date/Time: 07/23/2016 ORDER SHEET Weight: 70.7 kg (stated) Allergies: No Known Drug Allergy GENERAL ORDERS: I&D Tray (17:07 07/23/2016 Tatum Saldivar) ([facility] 17:38 Yahir) (17:38 Yahir) MEDICATION ORDERS: IV FLUIDS: ORDER SHEET NOTES: [Electronically signed by Pearl Beckwith P.A.-C (18:24 07/23/2016)] [Electronically signed by Malik Savage R.N. (18:44 07/23/2016)] [Electronically locked/signed by Malik Savage R.N. (18:44 07/23/2016)]
--- NOTE | 2016-07-23 18:02 | ED CLINICAL REPORT ---
Clinical Report - Physicians/Mid Levels [facility] [address] [place] [address] 07/23/2016 16:14 Patient: ANDREY LEAL Time Seen: 1730. Arrived- By private vehicle. Historian- patient. HISTORY OF PRESENT ILLNESS Chief Complaint: SKIN RASH. This started 5 days and is still present. It is described as painful. It has been located on the right and left buttocks. A cause has been identified. No recent medication. (patient reports use of heroin, has had multiple abscesses drained recently. Patient reports no drainage spontaneously from the right side.). REVIEW OF SYSTEMS No fever, cough, hoarseness, eye irritation or nausea. No diarrhea. All systems otherwise negative, except as recorded above. PAST HISTORY Tetanus immunization status is up-to-date. SOCIAL HISTORY History of drug use im heroin. ADDITIONAL NOTES The nursing notes have been reviewed. PHYSICAL EXAM Vital Signs: 07/23/2016 16:36 BP: 120/83. HR: 101. RR: 17. O2 saturation: 99%. Temp: 98.3 F. Appearance: Alert. ENT: Ears normal. Nose normal. CVS: Normal heart rate and rhythm. Heart sounds normal. Respiratory: No respiratory distress. Breath sounds normal. Skin: Erythema. Tender indurated area. Cellulitis. Abscess (right gluteus large area of erythema, with extension into right thigh/ lateral.). There is warmth and tenderness. Extremities: (right full rom at the hip, and full rom of the left hip.). Neuro: Oriented X 3. PROGRESS AND PROCEDURES Incision & Drainage of Abscess: Time: 1800. Time-out completed immediately before the procedure. The abscess is located (r. gluteus). The risks of the procedure, benefits and alternatives were explained. Consent was obtained. Anesthesia provided using 1% lidocaine with epi. The abscess was incised with a #11 surgical blade. A large amount of pus was drained. Cavity was packed with gauze. A dressing was applied. ( 2nd incision lateral made with no purulent drainage). Course of Care: SEnsitivity from 2016: MRSA GROWTH: HEAVY GROWTH AMPICILLIN AMPICILLIN/SULBACTAM CEFAZOLIN CEFTRIAXONE CEPHALOTHIN CIPROFLOXACIN R CLINDAMYCIN S DAPTOMYCIN S ERYTHROMYCIN R GENTAMICIN S LEVOFLOXACIN I LINEZOLID S NITROFURANTOIN OXACILLIN R PENICILLIN TRIMETHOPRIM/SULFAMETHOXAZOLE S VANCOMYCIN S Patient on clindamycin. The leroy with multiple previous visits for incision and drainage of multiple abscesses. Previous MRSA. Patient with good drainage of the right gluteus, extensive, attempted an incision and drainage on the right side as well, with no drainage. This may be early inflammation, however full range of motion at this time suspicion for joint diseaseinfection, septic arthritis is low. Patient is stable. Symptoms better. Patient/family counseled. Disposition: Discharged. CLINICAL IMPRESSION Multiple deep abscesses with incision and drainage (Right Gluteus). INSTRUCTIONS (repacking for left gluteus in 2-3 days follow up in ER or preferably [facility]). Prescription Medications: Clindamycin 300 mg: take 1 capsule orally every 6 hours for 7 days. No refill. Follow-up: Follow up with your doctor in three days. (Electronically signed by Pearl Beckwith P.A.-C 07/23/2016 18:24)
--- NOTE | 2016-07-23 18:02 | ED NURSING NOTES ---
Clinical Report - Nurses [facility] [address] [place] [address] 07/23/2016 16:14 Patient: ANDREY LEAL TRIAGE Triage time 16:36. Acuity: LEVEL 3. Chief Complaint: BOIL. Alert. SEPSIS SCREEN: Sepsis Screen. Infection suspected/documented. Heart rate greater than 90. Temperature not greater than 38.3 degrees C (101 degrees F). Respiratory rate not greater than 20. CARLOS ALBERTO COMA SCORE: Carlos Alberto Coma Scale: 15- eyes open spontaneously (4); best verbal response- oriented x 4 (5); best motor response- obeys commands (6). --16:40 Rhiannon Shelby R.N. 16:36 07/23/16. BP: 120/83. HR: 101. RR: 17. O2 saturation: 99%. Temp: 98.3 F. Pain level now 10/10. --16:40 Rhiannon Shelby R.N. Weight: 70.7 kg stated. Height/Length: 72 inches Per Patient. BMI: 21.2. --16:38 Rhiannon Shelby R.N. Medications Clindamycin HCl Oral. --16:38 Rhiannon Shelby R.N. Medication/allergy information source: the patient. --16:40 Rhiannon Shelby R.N. Allergies No Known Drug Allergy. --16:38 Rhiannon Shelby R.N. History Arrived by private vehicle. Historian: patient. Accompanied by family. Primary physician (filomena). ( seen here 4 days ago for left hip abcess, has been on clindamycin. Returning today for another abcess, located on right hip/buttock. Present for 1 week). Reported as located on the right buttock. 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 SOCIAL HX: Heavy tobacco smoker (cigarette)- less than 1 pack per day. History of IV drug use: heroin, marijuana. Recently used drugs yesterday. No alcohol use. FALL RISK ASSESSMENT: Fall risk assessment completed. No fall risk identified. NUTRITIONAL RISK ASSESSMENT: The nutritional risk assessment revealed no deficiencies. FUNCTIONAL ASSESSMENT: Functional assessment: no impairments noted. LEARNING NEEDS ASSESSMENT: The learning needs assessment revealed no barriers. SKIN INTEGRITY ASSESSMENT: Skin integrity risk assessment completed. No skin integrity risk identified. --16:40 Rhiannon Shelby R.N. PROBLEMS: Leukocytosis. Abscess Check. MRSA Infection. Cellulitis. Healing Abscess. Anal Fissure. Hemorrhoids. Abscess. --16:38 Rhiannon Shelby R.N. ADDITIONAL SURGERIES: Shoulder Surgery. --16:38 Rhiannon Shelby R.N. Interventions ID band on patient. To treatment room. --16:40 Rhiannon Shelby R.N. PHYSICAL ASSESSMENT Ambulatory to room. GENERAL / NEURO / PSYCH: Alert. Oriented X 4. HEENT: Pupils equal, round and reactive to light. Mucous membranes are pink. RESPIRATORY: Respirations not labored. CVS: Capillary refill less than 2 seconds. Pulses within normal limits. GI / : Abdomen nontender. SKIN: Skin is intact, warm, dry and non-tender. Normal skin turgor. --16:44 Malik Savage R.N. NURSING PROGRESS NOTES Patient gowned. Reassurance given. Patient identifiers checked. Call light placed in reach. Side rails up x 1. Bed placed in lowest position. Brakes of bed on. Patient ready for evaluation- chart flagged and ED physician notified. --16:44 Malik Savage R.N. 17:50. I & D: Incision and Drainage of abscess performed by PA. Assisted by one nurse. The abscess is located on the (Buttock). Preparation: Incision and Drainage tray set up with 2% lidocaine. Procedure; a moderate amount of pus was drained. Cavity was irrigated with saline and packed with gauze. A dressing was applied. Post-procedure: he was stable, no complications, bleeding controlled and dressing intact. Estimated blood loss: ~10 mL. Total time of assist / procedure: 15 minutes. --18:42 Malik Savage R.N. DISPOSITION / DISCHARGE 18:26 07/23/16. BP: 112/56 taken on the right arm, while lying. HR: 94. RR: 20. O2 saturation: 98%. Temp: deferred. Pain level now: 07/07. 16:36 07/23/16. BP: 120/83. HR: 101. RR: 17. O2 saturation: 99%. Temp: 98.3 F. Pain level now 02/06. --18:28 Ana Abbott R.N. Departure time: 1829. --18:33 Malik Savage R.N. 18:30. Condition at departure: improved. Learning barriers present. Discharge instructions provided and reviewed with the patient. Reviewed medication(s) (prescription given to pt). Reviewed wound care instructions. Reviewed referral to family practice for followup. Patient verbalized understanding. Written instructions provided in Togolese. The patient was discharged by the physician assistant branch manager. He was discharged home and accompanied by parent. He left the Emergency Department ambulatory and via private vehicle. Parent driving. --18:35 Malik Savage R.N. Locked/Released at 07/23/2016 18:44 by Malik Savage R.N.
--- NOTE | 2016-07-23 18:44 | ED DISCHARGE INSTRUCTIONS ---
Patient: ANDREY LEAL General Instructions [facility] VisitID: [id number] [place] [address] 35y, M Registration Date/Time: 07/23/2016 Multiple deep abscesses with incision and drainage (Right Gluteus). INSTRUCTIONS (repacking for left gluteus in 2-3 days follow up in ER or preferably [facility]). Prescription Medications: Clindamycin 300 mg: take 1 capsule orally every 6 hours for 7 days. No refill. Follow-up: Follow up with your doctor in three days. ADDITIONAL INFORMATION Abscess [Incision & Drainage] An abscess (sometimes called a boil) occurs when bacteria get trapped under the skin and begin to grow. Pus forms inside the abscess as the body responds to the bacteria. An abscess can occur with an insect bite, ingrown hair, blocked oil gland, pimple, cyst, or puncture wound. Treatment of your abscess has required an incision to drain the pus. If the abscess pocket was large, a gauze packing may have been inserted. This will need to be removed and possibly replaced on your next visit. Antibiotics are not required in the treatment of a simple abscess, unless the infection is spreading into the skin around the wound (known as cellulitis). Healing of the wound will take about one to two weeks depending on the size of the abscess. Healthy tissue will grow from the bottom and sides of the opening until it seals over. Home Care: The wound may drain for the first two days. Cover the wound with a clean dry dressing. If the dressing becomes soaked with blood or pus, change it. If a gauze packing was placed inside the abscess cavity, you may be advised to remove it yourself. You may do this in the shower. Once the packing is removed, you should wash the area in the shower or bath 3 to 4 times a day, until the skin opening has closed. If you were prescribed antibiotics, take them as directed until they are all gone. You may use acetaminophen (Tylenol) or ibuprofen (Motrin, Advil) to control pain, unless another pain medicine was prescribed. [ NOTE: If you have liver disease or ever had a stomach ulcer, talk with your doctor before using these medicines.] Follow Up with your doctor as advised by our staff. If a gauze packing was inserted in your wound, it should be removed in 1-2 days. Check your wound every day for the signs of worsening infection listed below. Get Prompt Medical Attention if any of the following occur: Increasing redness or swelling Red streaks in the skin leading away from the wound Increasing local pain or swelling Continued pus draining from the wound two days after treatment Fever of 100.4F (38C) or higher, or as directed by your healthcare provider Clindamycin Hydrochloride Oral capsule What is this medicine? CLINDAMYCIN (KEVIN Grant sin) is a lincosamide antibiotic. It is used to treat certain kinds of bacterial infections. It will not work for colds, flu, or other viral infections. How should I use this medicine? Take this medicine by mouth with a full glass of water. Follow the directions on the prescription label. You can take this medicine with food or on an empty stomach. If the medicine upsets your stomach, take it with food. Take your medicine at regular intervals. Do not take your medicine more often than directed. Take all of your medicine as directed even if you think your are better. Do not skip doses or stop your medicine early. Talk to your neon sign servicer regarding the use of this medicine in children. Special care may be needed. What side effects may I notice from receiving this medicine? Side effects that you should report to your doctor or health medical care administrator as soon as possible: allergic reactions like skin rash, itching or hives, swelling of the face, lips, or tongue dark urine pain on swallowing redness, blistering, peeling or loosening of the skin, including inside the mouth unusual bleeding or bruising unusually weak or tired yellowing of eyes or skin Side effects that usually do not require medical attention (report to your doctor or health medical care administrator if they continue or are bothersome): diarrhea itching in the rectal or genital area joint pain nausea, vomiting stomach pain What may interact with this medicine? chloramphenicol erythromycin kaolin products What if I miss a dose? If you miss a dose, take it as soon as you can. If it is almost time for your next dose, take only that dose. Do not take double or extra doses. Where should I keep my medicine? Keep out of the reach of children. Store at room temperature between 20 and 25 degrees C (68 and 77 degrees F). Throw away any unused medicine after the expiration date. What should I tell my health care provider before I take this medicine? They need to know if you have any of these conditions: kidney disease liver disease stomach problems like colitis an unusual or allergic reaction to clindamycin, lincomycin, or other medicines, foods, dyes like tartrazine or preservatives or trying to get breast-feeding What should I watch for while using this medicine? Tell your doctor or healthcare professional if your symptoms do not start to get better or if they get worse. Do not treat diarrhea with over the counter products. Contact your doctor if you have diarrhea that lasts more than 2 days or if it is severe and watery. You have been given the following additional information: Abscess, Incision And Drainage Clindamycin Hydrochloride Oral capsule (Electronically signed by Pearl Beckwith P.A.-C 07/23/2016 18:24)
--- NOTE | 2016-07-23 18:44 | ED MED RECONCILIATION SUMMARY ---
Patient: ANDREY LEAL Medication Reconciliation Report [facility] VisitID: [id number] [address] [place] [address] 35y, M Registration Date/Time: 07/23/2016 Weight: 70.7 kg Height/Length: 72 in. BMI: 21.2 ALLERGIES: No Known Drug Allergy The patient's Home Medications are listed below: THE FOLLOWING MEDICATIONS NEED TO BE RECONCILED: Clindamycin HCl Oral The source(s) of the original Home Medication information: patient The following Medications were given to the patient in the Emergency Department: None. The following Medications were prescribed to the patient: Clindamycin 300 mg: take 1 capsule orally every 6 hours for 7 days. No refill. -- Pearl Beckwith PPanchoAJoseC
--- NOTE | 2016-07-23 18:44 | ED MED RECONCILIATION SUMMARY ---
Patient: ANDREY LEAL Medication Reconciliation Report [facility] VisitID: [id number] [address] [place] [address] 35y, M Registration Date/Time: 07/23/2016 Weight: 70.7 kg Height/Length: 72 in. BMI: 21.2 ALLERGIES: No Known Drug Allergy The patient's Home Medications are listed below: THE FOLLOWING MEDICATIONS NEED TO BE RECONCILED: Clindamycin HCl Oral The source(s) of the original Home Medication information: patient The following Medications were given to the patient in the Emergency Department: None. The following Medications were prescribed to the patient: Clindamycin 300 mg: take 1 capsule orally every 6 hours for 7 days. No refill. -- Pearl Beckwith PPanchoAJoseC
--- NOTE | 2016-07-23 18:44 | ED DISCHARGE INSTRUCTIONS ---
Patient: ANDREY LEAL General Instructions [facility] VisitID: [id number] [place] [address] 35y, M Registration Date/Time: 07/23/2016 Multiple deep abscesses with incision and drainage (Right Gluteus). INSTRUCTIONS (repacking for left gluteus in 2-3 days follow up in ER or preferably [facility]). Prescription Medications: Clindamycin 300 mg: take 1 capsule orally every 6 hours for 7 days. No refill. Follow-up: Follow up with your doctor in three days. ADDITIONAL INFORMATION Abscess [Incision & Drainage] An abscess (sometimes called a boil) occurs when bacteria get trapped under the skin and begin to grow. Pus forms inside the abscess as the body responds to the bacteria. An abscess can occur with an insect bite, ingrown hair, blocked oil gland, pimple, cyst, or puncture wound. Treatment of your abscess has required an incision to drain the pus. If the abscess pocket was large, a gauze packing may have been inserted. This will need to be removed and possibly replaced on your next visit. Antibiotics are not required in the treatment of a simple abscess, unless the infection is spreading into the skin around the wound (known as cellulitis). Healing of the wound will take about one to two weeks depending on the size of the abscess. Healthy tissue will grow from the bottom and sides of the opening until it seals over. Home Care: The wound may drain for the first two days. Cover the wound with a clean dry dressing. If the dressing becomes soaked with blood or pus, change it. If a gauze packing was placed inside the abscess cavity, you may be advised to remove it yourself. You may do this in the shower. Once the packing is removed, you should wash the area in the shower or bath 3 to 4 times a day, until the skin opening has closed. If you were prescribed antibiotics, take them as directed until they are all gone. You may use acetaminophen (Tylenol) or ibuprofen (Motrin, Advil) to control pain, unless another pain medicine was prescribed. [ NOTE: If you have liver disease or ever had a stomach ulcer, talk with your doctor before using these medicines.] Follow Up with your doctor as advised by our staff. If a gauze packing was inserted in your wound, it should be removed in 1-2 days. Check your wound every day for the signs of worsening infection listed below. Get Prompt Medical Attention if any of the following occur: Increasing redness or swelling Red streaks in the skin leading away from the wound Increasing local pain or swelling Continued pus draining from the wound two days after treatment Fever of 100.4F (38C) or higher, or as directed by your healthcare provider Clindamycin Hydrochloride Oral capsule What is this medicine? CLINDAMYCIN (KEVIN Grant sin) is a lincosamide antibiotic. It is used to treat certain kinds of bacterial infections. It will not work for colds, flu, or other viral infections. How should I use this medicine? Take this medicine by mouth with a full glass of water. Follow the directions on the prescription label. You can take this medicine with food or on an empty stomach. If the medicine upsets your stomach, take it with food. Take your medicine at regular intervals. Do not take your medicine more often than directed. Take all of your medicine as directed even if you think your are better. Do not skip doses or stop your medicine early. Talk to your minister assistant regarding the use of this medicine in children. Special care may be needed. What side effects may I notice from receiving this medicine? Side effects that you should report to your doctor or health rn medicare as soon as possible: allergic reactions like skin rash, itching or hives, swelling of the face, lips, or tongue dark urine pain on swallowing redness, blistering, peeling or loosening of the skin, including inside the mouth unusual bleeding or bruising unusually weak or tired yellowing of eyes or skin Side effects that usually do not require medical attention (report to your doctor or health rn medicare if they continue or are bothersome): diarrhea itching in the rectal or genital area joint pain nausea, vomiting stomach pain What may interact with this medicine? chloramphenicol erythromycin kaolin products What if I miss a dose? If you miss a dose, take it as soon as you can. If it is almost time for your next dose, take only that dose. Do not take double or extra doses. Where should I keep my medicine? Keep out of the reach of children. Store at room temperature between 20 and 25 degrees C (68 and 77 degrees F). Throw away any unused medicine after the expiration date. What should I tell my health care provider before I take this medicine? They need to know if you have any of these conditions: kidney disease liver disease stomach problems like colitis an unusual or allergic reaction to clindamycin, lincomycin, or other medicines, foods, dyes like tartrazine or preservatives or trying to get breast-feeding What should I watch for while using this medicine? Tell your doctor or healthcare professional if your symptoms do not start to get better or if they get worse. Do not treat diarrhea with over the counter products. Contact your doctor if you have diarrhea that lasts more than 2 days or if it is severe and watery. You have been given the following additional information: Abscess, Incision And Drainage Clindamycin Hydrochloride Oral capsule (Electronically signed by Pearl Beckwith P.A.-C 07/23/2016 18:24)
--- NOTE | 2016-07-23 18:44 | ED MAR SUMMARY ---
..... Medication Administration Record Merged With [facility] [address] [place] [place], [place] [id number] Patient: ANDREY LEAL Visit ID: [id number] 35y, M Weight: 70.7 kg Height/Length: 72 in BMI: 21.2 ALLERGIES: No Known Drug Allergy
--- NOTE | 2016-07-23 18:44 | ED MAR SUMMARY ---
..... Medication Administration Record [facility] [address] [place], [place] [id number] Patient: ANDREY LEAL Visit ID: [id number] 35y, M Weight: 70.7 kg Height/Length: 72 in BMI: 21.2 ALLERGIES: No Known Drug Allergy
== END 2016-07-23 18:30 | disposition home or self-care (01) ==
LOC: ED SRH 16:14
DX: L02.31 Cutaneous abscess of buttock (principal); F11.10 Opioid abuse, uncomplicated; Z86.14 Personal history of Methicillin resistant Staphylococcus aureus infection; F17.210 Nicotine dependence, cigarettes, uncomplicated